=== PATIENT | male | born 1985 ===

== ENCOUNTER 2018-02-05 21:11 | Emergency (ER) | payer SELFPAY | END 2018-02-05 22:17 | disposition left against medical advice (07) | LOC: ED 21:11 | DX: Z02.89 Encounter for other administrative examinations (principal); Z00.00 Encounter for general adult medical examination without abnormal findings ==

== ENCOUNTER 2018-02-06 11:40 | Emergency (ER) | payer OTHER, BC ==
[2018-02-06 12:14] VITALS: TEMP 97.6
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
[2018-02-06 13:39] VITALS: BP 122/72; PULSE 76; RESP 18; O2SAT 98
== END 2018-02-06 13:44 | disposition home or self-care (01) ==
LOC: ED 11:40
DX: M54.9 Dorsalgia, unspecified (principal)
CPT/HCPCS: 96372; 99283; J1885